=== PATIENT | female | born 1935 | race American Indian/Alaskan Native ===

== ENCOUNTER 2019-10-09 00:30 | Emergency (ER) | payer MEDICARE ==
--- NOTE | 2019-10-09 01:20 | Emergency Department Report ---
ED Fall HPI - General Chief Complaint: Fall Stated Complaint: BILATERAL WEAKNES LOWER EXT'S Time Seen by Provider: 10/09/19 00:54 Source: EMS Mode of arrival: Stretcher - History of Present Illness Initial Comments: 84-year-old female presents to ED after falling out of bed. Patient states she has a bedside commode next to her bed. Patient states she rolled over onto her side to get out of bed and ended up falling onto the floor. Patient states she was on the floor and unable to get up because of pain in bilateral knees. Patient has history of left knee replacement surgery, also reports has pain and problems with the right knee as well. Patient denies hitting her head or passing out. Patient reports she had pain in bilateral knees when she attempted to stand up. Patient also reports neck and back pain, history of back surgery. She denies any numbness or weakness in her extremities. MD Complaint: fall Fall From: out of bed When Fall Occurred: just prior to arrival Fall Witnessed: no Place Fall Occurred: home Loss of Consciousness: none Prolonged Down Time?: no Symptoms Prior to Fall: none Location: neck, back Location - Extremities: Left: Knee, Right: Knee Severity: moderate Quality: aching Associated Symptoms: neck pain. denies: headache, numbness, weakness, chest paint, shortness of breath, abdominal pain - Related Data Previous Rx's Medication Instructions Recorded Last Taken Type traMADoL [Ultram] 50 mg PO Q6HR PRN #7 tablet 10/09/19 Unknown Rx Allergies Allergy/AdvReac Type Severity Reaction Status Date / Time meperidine [From Demerol] Allergy Unknown Verified 10/09/19 00:44 Penicillins Allergy Unknown Verified 10/09/19 00:44 Sulfa (Sulfonamide Allergy Unknown Verified 10/09/19 00:44 Antibiotics) ED Review of Systems ROS: Stated complaint: BILATERAL WEAKNES LOWER EXT'S Other details as noted in HPI Comment: All other systems reviewed and negative Constitutional: denies: chills, fever Respiratory: denies: shortness of breath Cardiovascular: denies: chest pain Gastrointestinal: denies: abdominal pain, vomiting, diarrhea Musculoskeletal: as per HPI, arthralgia Neurological: denies: headache, weakness, numbness ED Past Medical Hx - Past Medical History Previous Medical History?: Yes Hx Hypertension: Yes Additional medical history: breast cancer - Social History Smoking Status: Never Smoker - Medications Home Medications: Home Medications Medication Instructions Recorded Confirmed Last Taken Type traMADoL [Ultram] 50 mg PO Q6HR PRN #7 tablet 10/09/19 Unknown Rx ED Physical Exam - General Limitations: No Limitations General appearance: alert, in no apparent distress - Head Head exam: Present: atraumatic, normocephalic - Eye Eye exam: Present: normal appearance, PERRL, EOMI - ENT ENT exam: Present: mucous membranes moist - Neck Neck exam: Present: normal inspection, tenderness (Left paraspinal) - Respiratory Respiratory exam: Present: normal lung sounds bilaterally. Absent: respiratory distress - Cardiovascular Cardiovascular Exam: Present: normal rhythm, tachycardia - GI/Abdominal GI/Abdominal exam: Present: soft. Absent: distended, tenderness - Extremities Exam Extremities exam: Present: normal inspection, other (Decreased range of motion in right knee secondary to pain). Absent: joint swelling - Back Exam Back exam: Present: paraspinal tenderness (Left lumbar) - Neurological Exam Neurological exam: Present: alert, oriented X3, CN II-XII intact. Absent: motor sensory deficit - Psychiatric Psychiatric exam: Present: normal affect, normal mood - Skin Skin exam: Present: warm, dry, intact, normal color ED Course Vital Signs 10/09/19 10/09/19 10/09/19 00:40 00:41 01:40 Temperature 97.9 F 97.9 F Pulse Rate 122 H 122 H Respiratory 20 20 18 Rate Blood Pressure 155/81 Blood Pressure 155/81 [Right] O2 Sat by Pulse 96 96 Oximetry 10/09/19 04:22 Temperature 97.6 F Pulse Rate 100 H Respiratory 18 Rate Blood Pressure Blood Pressure 149/84 [Right] O2 Sat by Pulse 98 Oximetry - Reevaluation(s) Reevaluation #1: 10/09/19 04:09 Nurse called patient's son to inform that patient was up for discharge. Son advised the patient had a seizure at home. States patient has a history of seizures. Son states he told EMS, however we were not given report of a seizure from paramedics that brought patient into ED. Patient has been alert and oriented x3 throughout her stay. Son states patient missed her dosage of seizure medications so we will patient her seizure medication and check a CBC and BMP. ED Medical Decision Making - Lab Data Result diagrams: 10/09/19 04:03 10/09/19 04:03 - Radiology Data Radiology results: report reviewed, image reviewed - Medical Decision Making 84-year-old female with history of seizures presents to the ED after possibly having a seizure, although patient states she fell out of the bed. Son reports patient may have possibly had a seizure. Patient has been A&O x3 during her ED stay. She denies headache. Patient reported musculoskeletal pain, and therefore had x-rays of cervical spine and lumbar spine, which showed no acute findings. After speaking to patient's son over the phone and finding out that patient may have possibly had a seizure, labs were drawn. Patient slightly hypokalemic, so K. Dur was given. She was also given her dose of oxcarbazepine, which son states she may have missed a dose. Advised son to have patient follow-up with her neurologist. Prescriptions given. Return precautions given. Will discharge home. - Differential Diagnosis Fracture, sprain, seizure Critical care attestation.: If time is entered above; I have spent that time in minutes in the direct care of this critically ill patient, excluding procedure time. ED Disposition Clinical Impression: Fall, Chronic pain of both knees, Acute cervical myofascial strain, Acute myofascial strain of lumbar region, Seizure, Hypokalemia Disposition: -01 TO HOME OR SELFCARE Is pt being admited?: No Condition: Stable Instructions: Muscle Strain (ED), Recurrent Seizures Adult (ED) Prescriptions: traMADoL [Ultram] 50 mg PO Q6HR PRN #7 tablet PRN Reason: Pain Referrals: PRIMARY CAREMD [Referring] - 3-5 Days TERRY SALAZAR MD [Staff Physician] - 3-5 Days Time of Disposition: 05:11
[2019-10-09] MEDS ORDERED: traMADol 50 MG TAB PO ONE (01:25)
[2019-10-09] MEDS ORDERED: IBUPROFEN 800 MG TAB PO ONE (01:25)
--- NOTE | 2019-10-09 01:58 | XRay Report ---
CERVICAL SPINE, 3 VIEWS INDICATION / CLINICAL INFORMATION: pain. COMPARISON: None available. FINDINGS: Moderate degenerative disc disease is present at C3-C4. Mild diffuse spondylytic change noted through out the spine. No evidence of compression fracture. Posterior alignment is normal. IMPRESSION: Diffuse spondylytic change with moderate degenerative disc disease at C3-C4. Signer Name: Wanda Mcgill MD Signed: 10/09/2019 1:53 AM Workstation Name: [id number]
--- NOTE | 2019-10-09 01:59 | XRay Report ---
LUMBAR SPINE, 3 VIEWS INDICATION / CLINICAL INFORMATION: pain. COMPARISON: None available. FINDINGS: Mild to moderate multilevel degenerative disc disease. Posterior alignment is normal. There is marked spondylitic change throughout the lumbar spine. No visible fracture. IMPRESSION: Mild to moderate multilevel degenerative disc disease. Diffuse spondylytic change. Signer Name: Wanda Mcgill MD Signed: 10/09/2019 1:55 AM Workstation Name: [id number]
[2019-10-09] MEDS ORDERED: OXcarbazepine 150 MG TAB PO ONE (03:55)
[2019-10-09 04:23] VITALS: BP 149/84
[2019-10-09 04:33] LABS: Basophils % (Auto) 0.4 % (0.0-1.8); Eosinophils # (Auto) 0.1 K/mm3 (0.0-0.4); Eosinophils % (Auto) 1.3 % (0.0-4.3); Hemoglobin 11.8 gm/dl (10.1-14.3); Lymphocytes # (Auto) 1.1 K/mm3 (1.2-5.4); Lymphocytes % (Auto) 22.2 % (13.4-35.0); Mean Corpuscular HGB Conc 33 % (30-34); Mean Corpuscular Volume 83 fl (79-97); Monocytes # (Auto) 0.6 K/mm3 (0.0-0.8); Monocytes % (Auto) 11.9 % (0.0-7.3); Platelet Count 198 K/mm3 (140-440); Red Blood Count 4.33 M/mm3 (3.65-5.03); Red Cell Distribution Width 16.5 % (13.2-15.2)
[2019-10-09 04:37] LABS: BUN/Creatinine Ratio 18; Blood Urea Nitrogen 14 mg/dL (7-17); Hemolysis Index 5
[2019-10-09] MEDS ORDERED: POTASSIUM CHLORIDE ER 20 MEQ TAB PO ONE (05:08)
== END 2019-10-09 05:48 | disposition home or self-care (01) ==
LOC: ED 00:30
DX: S16.1XXA Strain of muscle, fascia and tendon at neck level, initial encounter (principal); S39.012A Strain of muscle, fascia and tendon of lower back, initial encounter; R56.9 Unspecified convulsions; G89.29 Other chronic pain; E87.6 Hypokalemia; I10 Essential (primary) hypertension; Z85.3 Personal history of malignant neoplasm of breast; Z88.0 Allergy status to penicillin; Z88.2 Allergy status to sulfonamides; Z79.899 Other long term (current) drug therapy; W06.XXXA Fall from bed, initial encounter; Y93.89 Activity, other specified; Y92.098 Other place in other non-institutional residence as the place of occurrence of the external cause; Y99.8 Other external cause status
CPT/HCPCS: 36415; 72040; 72100; 80048; 85025

== ENCOUNTER 2020-07-31 04:13 | Emergency (ER) | payer MEDICARE ==
[2020-07-31 05:01] VITALS: BP 166/90
--- NOTE | 2020-07-31 08:41 | XRay Report ---
ABDOMEN 2 VIEWS INDICATION / CLINICAL INFORMATION: constipation. COMPARISON: None available. FINDINGS: TUBES / LINES: None. BOWEL GAS PATTERN: Abundant fecal material noted throughout the colon and rectal vault. Nonobstructiv e bowel gas pattern. FREE AIR / EXTRALUMINAL GAS: None seen. ADDITIONAL FINDINGS: Lumbar spondylosis and mild bilateral hip arthrosis. CHEST: Visualized chest shows no significant abnormality. IMPRESSION: 1. Findings consistent with provided patient history of constipation. Signer Name: Pollo Christianson MD Signed: 07/31/2020 8:37 AM Workstation Name: [id number]
[2020-07-31 09:12] LABS: Basophils % (Auto) 0.5 % (0.0-1.8); Eosinophils # (Auto) 0.1 K/mm3 (0.0-0.4); Eosinophils % (Auto) 2.1 % (0.0-4.3); Hematocrit 41.5 % (30.3-42.9); Hemoglobin 13.6 gm/dl (10.1-14.3); Lymphocytes # (Auto) 1.5 K/mm3 (1.2-5.4); Lymphocytes % (Auto) 28.8 % (13.4-35.0); Mean Corpuscular HGB Conc 33 % (30-34); Mean Corpuscular Volume 85 fl (79-97); Monocytes # (Auto) 0.4 K/mm3 (0.0-0.8); Monocytes % (Auto) 6.9 % (0.0-7.3); Platelet Count 226 K/mm3 (140-440); Red Blood Count 4.87 M/mm3 (3.65-5.03); Red Cell Distribution Width 16.3 % (13.2-15.2)
[2020-07-31 09:31] LABS: Alanine Aminotransferase 19 units/L (7-56); Albumin 4.2 g/dL (3.9-5); BUN/Creatinine Ratio 21; Blood Urea Nitrogen 19 mg/dL (7-17); Calcium 9.3 mg/dL (8.4-10.2); Hemolysis Index 11
== END 2020-07-31 04:50 | disposition left against medical advice (07) ==
LOC: ED 04:13
DX: K59.00 Constipation, unspecified (principal); Z53.21 Procedure and treatment not carried out due to patient leaving prior to being seen by health care provider
CPT/HCPCS: 36415; 74019; 80053; 83690; 84484; 85025